=== PATIENT | male | born 1950 | race Caucasian/White ===

== ENCOUNTER 2019-06-30 11:30 | Inpatient (IN) ==
[2019-06-30] MEDS ORDERED: DUONEB (A & A) INH ONE (11:59)
[2019-06-30] MEDS ORDERED: SOLU-MEDROL IV ONE (12:00)
--- NOTE | 2019-06-30 12:29 | Diag Imaging Result Doc PS360 ---
CHEST-2 VIEWS - 06/30/2019 INDICATION: dyspnea COMPARISON: 01/28/2019 FINDINGS: Stable hyperexpanded lungs compatible with COPD. No infiltrates or edema. Heart size is normal. No pneumothorax or pleural effusion. IMPRESSION: COPD. Electronically signed by Sean Shankar 06/30/2019 12:27 PM
[2019-06-30 12:47] LABS: BASO# 0.06 X1000 (0.0-0.2); BASO% 0.5 % (0.0-0.8); EOS# 0.11 X1000 (0.0-0.7); HEMATOCRIT 44.5 % (42.0-52.0); HEMOGLOBIN 13.4 g/dL (14.0-18.0); LYMPH# 1.41 X1000 (1.2-3.4); LYMPH% 12.6 % (20.5-51.1); MCH 27.8 PG (27-31); MCHC 30.1 g/dL (33-37); MCV 92.3 FL (81-99); MONO# 0.97 X1000 (0.11-0.59); MONO% 8.7 % (1.7-9.3); MPV 10.8 FL (7.4-10.4); NEUT# 8.62 X1000 (1.4-6.5); NEUT% 77.2 % (42.2-75.2); PLT 294 X1000 (130-400); RBC 4.82 XMIL (4.7-6.1); RDW 13.4 % (11.5-14.5); WBC 11.17 X1000 (4.8-10.8)
[2019-06-30 13:13] LABS: AGAP 11; ALB/GLOB RATIO 1.5; ALBUMIN 4.1 g/dL (3.5-5.0); ALKALINE PHOSPHATASE 50 U/L (32-122); BUN 19 mg/dL (8-22); CALCIUM 9.5 mg/dL (8.8-10.2); CHLORIDE 95 mmol/L (98-107); COSMO 283; CREATININE 0.8 mg/dL (0.7-1.2); ESTIMATED GFR > 60; GLUCOSE 95 mg/dL (70-104); GOT 17 U/L (10-34); GPT 14 U/L (10-44); POTASSIUM 4.4 mmol/L (3.5-5.1); SODIUM 141 mmol/L (136-145); TCO2 35 mmol/L (25-35); TOTAL BILIRUBIN 0.16 mg/dL (0.20-1.00); TOTAL PROTEIN 6.8 g/dL (6.3-8.3)
--- NOTE | 2019-06-30 13:50 | PROVIDER DOCUMENTATION ---
This chart was entered by Judith Anaya Scribe, acting as scribe for Ken Gannon MD. HPI-Respiratory General - General Chief Complaint: Shortness of Breath Stated Complaint: SOB Time Seen by Provider: 06/30/19 11:55 Source: patient Allergies/Adverse Reactions: Patient Allergies Allergy/AdvReac Type Severity Reaction Status Date / Time No Known Allergies Allergy Verified 06/30/19 12:40 Home Medications: Home Medication List Medication Instructions Recorded Confirmed Last Taken Type Albuterol 2.5MG/Ipratrop 0.5MG 3 ml INH Q2H PRN PRN 06/30/19 06/30/19 06/30/19 History [Duoneb] Amlodipine Besylate [Norvasc] 5 mg PO QAM 06/30/19 06/30/19 06/30/19 History Clopidogrel Bisulfate [Plavix] 75 mg PO QAM 06/30/19 06/30/19 06/30/19 History Ezetimibe [Zetia] 10 mg PO QHS 06/30/19 06/30/19 1 Day Ago History ~06/29/19 Fluticasone/Vilanterol [Breo 1 ea INHALATION QAM 06/30/19 06/30/19 06/30/19 History Ellipta Inhaler] Omeprazole [Prilosec] 20 mg PO DAILY@0700 06/30/19 06/30/19 06/30/19 History Rosuvastatin Calcium [Crestor] 10 mg PO QHS 06/30/19 06/30/19 1 Day Ago History ~06/29/19 Umeclidinium [place] Inhaler 1 puff INH DAILY 06/30/19 06/30/19 06/30/19 History [Incruse Ellipta] - History of Present Illness-Resp Nature of Presenting Problem: Patient is a 69 year old male who presents to the ED via EMS with shortness of breath. States lightheadedness with shortness of breath today. History of COPD. Reports being seen at his PCP's office and received 2 neb treatments. Quality of Pain: reports: none Severity in ED: reports: mild Onset/Duration: reports: gradual Timing: reports: still present, getting worse Modifying Factors: worse with: exertion Associated Symptoms: reports: lightheadedness, shortness of breath Similar Symptoms Previously?: Yes Recently seen or treated by another doctor?: Yes Review of Systems - Adult - REVIEW OF SYSTEMS - ADULT Constitutional: reports: no symptoms reported Eyes: reports: no symptoms reported Ears, Nose, Mouth & Throat: reports: no symptoms reported Cardiovascular: reports: no symptoms reported Respiratory: reports: see HPI, shortness of breath Gastrointestinal: reports: no symptoms reported Genitourinary: reports: no symptoms reported Musculoskeletal: reports: no symptoms reported Integumentary: reports: no symptoms reported Neurological: reports: see HPI, other (lightheadedness) Psychiatric: reports: no symptoms reported Endocrine: reports: no symptoms reported Hematologic/Lymphatic: reports: no symptoms reported Allergic/Immunologic: reports: no symptoms reported All Other Systems: Reviewed and Negative Past History - Adult - PAST MEDICAL HISTORY-ADULT Review of Records: reports: Old Records Reviewed, Nursing Assessment Review, Medications Reviewed, Social history reviewed & non-contributory. Major Childhood Illnesses: reports: denies history Cardiovascular: reports: denies history Respiratory: reports: COPD Gastrointestinal: reports: denies history Obstetrical/Gynecological: reports: denies history Genitourinary: reports: denies history Musculoskeletal: reports: denies history Neurological: reports: denies history Endocrine/Immune: reports: denies history Other Conditions: reports: denies history - PRIOR SURGERIES/PROCEDURES Surgical/Procedure History: reports: reviewed, not pertinent - IMMUNIZATION STATUS Childhood Immunizations: See Nurse Assessment Flu Vaccine: See Nurse Assessment - FAMILY HISTORY Family History: reviewed, not pertinent - SOCIAL HISTORY Smoking: cigarettes, greater than 1 pack/day Provider spent 3-5 mins advising pt. on dangers of tobacco.: Discussed manners to quit use, and f/u contacts for add'l counseling. Substance Use: denies Living Situation: family Physical Exam-General - PHYSICAL EXAM-ADULT Initial Vital Signs Reviewed: Yes - CONSTITUTIONAL General Appearance: alert, mild distress - RESPIRATORY Respiratory: chest non-tender, respiratory distress (mild), decreased breath sounds, wheezing (bilateral) - CARDIOVASCULAR Cardiovascular: regular rate, rhythm, no gallop, no murmur - SKIN Integumentary: normal color, normal turgor, warm/dry - NEUROLOGIC Neurologic: grossly normal - PSYCHIATRIC Psych/Mental Status: normal mood/affect, normal thought content, normal thought process, oriented x 3 Progress - PLAN OF CARE/RESULTS Progress/Plan/Lab Results: Vital Signs - 8 hr 06/30/19 11:50 06/30/19 12:28 06/30/19 13:12 Pulse Rate 98 H 97 H 96 H Respiratory Rate 18 19 20 Blood Pressure 128/68 134/84 O2 Sat by Pulse Oximetry 96 95 06/30/19 12:40 Influenza Screen - Final Nasopharyngeal Laboratory Results - last 24 hr 06/30/19 06/30/19 06/30/19 12:20 12:20 12:20 WBC 11.17 H RBC 4.82 Hgb 13.4 L Hct 44.5 MCV 92.3 MCH 27.8 MCHC 30.1 L RDW Std Deviation 13.4 Plt Count 294 MPV 10.8 H Immature Gran % (Auto) 0.0 Neut % (Auto) 77.2 H Lymph % (Auto) 12.6 L Blount % (Auto) 8.7 Eos % (Auto) 1.0 Baso % (Auto) 0.5 Immature Gran # (Auto) 0.00 Neut # (Auto) 8.62 H Lymph # (Auto) 1.41 Blount # (Auto) 0.97 H Eos # (Auto) 0.11 Baso # (Auto) 0.06 Sodium 141 Potassium 4.4 Chloride 95 L Carbon Dioxide 35 Anion Gap 11 BUN 19 Creatinine 0.8 Estimated GFR/1.73 m2 > 60 BUN/Creatinine Ratio 24 Glucose 95 Calculated Osmolality 283 Calcium 9.5 Total Bilirubin 0.16 L AST 17 ALT 14 Alkaline Phosphatase 50 Troponin T High Sens Lgs-Y-Kunqfxurkwq Pept Total Protein 6.8 Albumin 4.1 Globulin 2.7 Albumin/Globulin Ratio 1.5 Plasma Lactate 1.5 06/30/19 06/30/19 12:20 12:20 WBC RBC Hgb Hct MCV MCH MCHC RDW Std Deviation Plt Count MPV Immature Gran % (Auto) Neut % (Auto) Lymph % (Auto) [place] % (Auto) Eos % (Auto) Baso % (Auto) Immature Gran # (Auto) Neut # (Auto) Lymph # (Auto) Blount # (Auto) Eos # (Auto) Baso # (Auto) Sodium Potassium Chloride Carbon Dioxide Anion Gap BUN Creatinine Estimated GFR/1.73 m2 BUN/Creatinine Ratio Glucose Calculated Osmolality Calcium Total Bilirubin AST ALT Alkaline Phosphatase Troponin T High Sens 25 H Qjd-G-Nlttzftfoyv Pept 1039 H Total Protein Albumin Globulin Albumin/Globulin Ratio Plasma Lactate Orders Category Date Time Status Admit - [facility] Routine AdmDCTranf 06/30/19 13:47 Active Nursing- Obtain EKG once Care 06/30/19 11:59 Active CHEST-2 VIEWS [RAD] Stat Exams 06/30/19 11:59 Completed BLOOD CULTURE [BLDCUL] Stat Lab 06/30/19 12:27 Results CBC WITH ELECTRONIC DIFF [HEME] Stat Lab 06/30/19 12:20 Completed COMPREHENSIVE METABOLIC PANEL [CHEM] Stat Lab 06/30/19 12:20 Completed INFLUENZA SCREEN A/B Stat Lab 06/30/19 12:40 Completed LACTATE, PLASMA [CHEM] Stat Lab 06/30/19 12:20 Completed PRO B-NATRIURETIC PEPTIDE Stat Lab 06/30/19 12:20 Completed TROPONIN T HIGH SENSITIVITY Stat Lab 06/30/19 12:20 Completed Albuterol 2.5MG/Ipratrop 0.5MG [Duoneb (A & A)] Med 06/30/19 11:59 Discontinued 9 ml INH NOW ONE Methylprednisolone Sod Succ [Solu-Medrol] Med 06/30/19 12:00 Discontinued 125 mg IV NOW ONE Aerosol Treatments Routine Oth 06/30/19 11:59 Completed Aerosol Treatments Stat Oth 06/30/19 11:59 Completed Transfer/Admit Order [TRANSFER] Routine Transfer 06/30/19 13:47 Ordered Result Diagrams: 06/30/19 12:20 06/30/19 12:20 - REASSESSMENT Reassessment #1 Time Reassessed: 13:42 Status: unchanged (patient states he is still having shortness of breath.) - EKG 1 Time of EKG reading by physician:: 13:06 EKG Read and Signed by:: Ken Gannon EKG Interpretation (*Must complete 3 of following elements*): Abnormal (cannot rule out inferior infarct, age undetermined; anterior infarct, age undetermined) Rate: 98 Rhythm: sinus rhythm with frequent premature ventricular complexes [place]: normal [place] Interval: normal Comments: possible left atrial enlargement; - XRAY 1 XRAY Study: Chest Impression: See EMR Report ( CHEST-2 VIEWS - 06/30/2019 INDICATION: dyspnea COMPARISON: 01/28/2019 FINDINGS: Stable hyperexpanded lungs compatible with COPD. No infiltrates or edema. Heart size is normal. No pneumothorax or pleural effusion. IMPRESSION: COPD. Electronically signed by Sean Shankar 06/30/2019 12:27 PM 06/30/19 1227 Interpreting Physician: Sean Shankar MD Dictated Date/Time: 06/30/19 1226 cc: Ken Gannon MD; Bhupendra Bruce MD) - CONSULTS/PCP/HOSPITALIST Notification #1 *Consult/PCP/Hospitalist*: Dr. Bruce paged [phone] Time Discussed: 13:46 Reason/Comments: Dr. Gannon consulted with Dr. Bruce about patient. Consult Disposition: Will see in ED, Admit Departure - Departure Date of Disposition Decision: 06/30/19 Time of Disposition Decision: 13:46 DIAGNOSIS: COPD (chronic obstructive pulmonary disease) Qualifiers: COPD type: unspecified COPD Qualified Code(s): J44.9 - Chronic obstructive pulmonary disease, unspecified Disposition: ADMITTED INPATIENT 09 Certified Medical Emergency: Emergent Condition: Serious Referrals and Follow-Ups: Bhupendra Bruce MD [Primary Care Provider] - Discharge Education: Steps to Quit Smoking, Anrs-tq-Cigl - Critical Care Note This patient required my direct & personal management of CC.: Yes Total Time (mins): 38 Critical Care Statement: This patient required my direct personal management to treat or rule out processes, the absence of which, could potentiallly result in sudden, clinically significant life or limb threatening deterioration. Attestation - Physician/ RORY Attestation The physician spent face to face time with patient:: Yes Advanced Practice Provider documentation review:: Supervising physician onsite and consulted in the evaluation and care of this patient. The physician did have a face to face encounter with the patient. This chart was documented by the indicated scribe, (Judith Anaya Scribe) and accurately reflects the services I performed and decisions made by me, Ken Gannon MD, as attested by the provider's signature.
--- NOTE | 2019-06-30 16:03 | EKG Report ---
Test Performed on : 06/30/2019 1:06:50 PM Test Reason : SOB Blood Pressure : / mmHG Vent. Rate : 098 BPM Atrial Rate : 098 BPM P-R Int : 140 ms QRS Dur : 082 ms QT Int : 340 ms P-R-T Axes : 067 071 076 degrees QTc Int : 434 ms Sinus rhythm. with frequent premature ventricular complexes. Possible Left atrial enlargement Cannot rule out Inferior infarct , age undetermined Anterior infarct , age undetermined Abnormal ECG No previous ECGs available Unconfirmed Result
[2019-06-30] MEDS: PROTONIX IV SCH (17:29)
[2019-06-30] MEDS: SODIUM CHLORIDE 0.9% INJ SCH (17:29)
[2019-06-30] MEDS: NICODERM PATCH TD SCH (17:29)
[2019-06-30] MEDS ORDERED: LEVAQUIN 250 MG/D5W 250 MG/50 ML IVPB IV SCH (17:30)
[2019-06-30] MEDS: LOVENOX SUBQ SCH (17:37)
[2019-06-30] MEDS ORDERED: PREVNAR 13 IM ONE (17:42)
[2019-06-30] MEDS: POTASSIUM CHLORIDE 10 MEQ in NS 1,000 ML IV SCH (18:30)
[2019-06-30] MEDS: DUONEB (A & A) INH PRN (19:10)
--- NOTE | 2019-06-30 21:37 | HISTORY AND PHYSICAL ---
CHIEF COMPLAINT: Shortness of breath. HISTORY OF PRESENT ILLNESS: Mr. Ochoa is a 69-year-old, white gentleman, known case of advanced COPD. The patient is on home oxygen and nebulizer treatment, not doing well the last many days. The patient had increasing cough, chest congestion, expectoration, shortness of breath, decreased exercise tolerance. The patient was getting short of breath with minimal exertion, cough productive of scanty sputum. I evaluated the patient about a week ago in my office. At that time, patient had urinary frequency, urgency, dysuria. I treated the patient with antibiotics. The patient also had shortness of breath, and I gave him steroid, prednisone in tapering dose. The patient did fairly well. The patient started having increasing cough, chest congestion, decreased exercise tolerance. The patient came to the office for evaluation. The patient was using his nebulizer treatment, home oxygen without significant relief. The patient denied any hemoptysis. No pleuritic-type of chest pain. Denied any sore throat. The patient did have some chills, low-grade fever. The patient was getting short of breath walking a short distance. When the patient came to the office, the patient was in moderate respiratory distress. He was gasping for air. The last time I offered the patient hospitalization, but patient declined. Patient denied any nausea or vomiting. The patient had dull headache, mild epigastric pain, some nausea, but no vomiting. The patient's dysuria improved. The patient does have urinary frequency, urgency. No diarrhea, blood or mucus in the stool. When I evaluated the patient in the office, the patient was very tachypneic and tachycardic, offered patient going to hospital for evaluation. This time, patient did not decline considering his clinical condition. I had to call EMS and they carried the patient to the emergency room. The patient received 3 breathing treatments in the ER. The patient was still short of breath and the ER physician decided to admit the patient for further care. The patient's blood pressure in the ER, 134/84, pulse 96, respirations 20, and temperature was 98.2 degrees. The patient did have movement of accessory muscles of respiration and initially he did have difficulty finishing sentences. ALLERGIES: No known drug allergy. MEDICATIONS: Patient is on Zetia, bronchodilator treatment, Prilosec, Norvasc, Plavix, Breo, Incruse. PAST MEDICAL HISTORY: COPD, gastritis and reflux disease, hyperlipidemia, peripheral vascular disease, coronary artery disease, hypertension, gastroesophageal reflux disease, recurrent bronchitis, pneumonia, history of urolithiasis. The patient had several vascular surgeries, left lower leg amputation and blood clot. SOCIAL HISTORY: . The patient does smoke instead of multiple times requesting to quit smoking. Denied alcohol or substance abuse. FAMILY HISTORY: Significant for mother of cancer, details of which are not available. Father of motor vehicle accident. The patient's sister of heart attack. The patient has a strong family history of coronary artery disease. REVIEW OF SYSTEMS: As per HPI. Otherwise unobtainable. PERSONAL HISTORY: , lives with the . The patient does smoke. Denied alcohol or substance abuse. PHYSICAL EXAMINATION: GENERAL: Elderly white gentleman in moderate distress. VITAL SIGNS: Blood pressure 144/76, pulse 96, respiration 18, temperature 98.2 degrees. SKIN: Senile turgor. HEENT: Head atraumatic, normocephalic. [place] conjunctivae, anicteric sclerae. Extraocular muscle movement normal. Fundus cannot be penetrated. Good oral hygiene. No tonsillopharyngeal congestion or exudate. Ears and nose benign. NECK: Supple. No JVD, thyromegaly, or lymphadenopathy. CHEST: Bilateral expiratory wheezing. A few basilar crepitations. Movement of accessory muscles of respiration present. CARDIOVASCULAR: S1 and S2. Tachycardia. No gallop or thrill. ABDOMEN: Soft, globular. Bowel sounds present. No organomegaly or mass. EXTREMITIES: No cyanosis, clubbing. No acute DVT. The patient does have left leg amputated at the knee level. CENTRAL NERVOUS SYSTEM: Alert, awake, answering questions fairly well. MUSCULOSKELETAL SYSTEM: No evidence of acute synovitis. CONSIDERATIONS: 1. Patient admitted with acute respiratory distress, exacerbation of chronic obstructive pulmonary disease. Chest x-ray did not reveal any pneumonia. 2. His other problems include gastritis and reflux disease, hyperlipidemia, history of left leg amputation, history suggestive of peripheral vascular disease. PLAN: Overall plan discussed at length with the patient. Plan is to admit the patient, IV hydration, pulmonary toilet, IV prednisone, and bronchodilator treatment. Overall plan discussed with the patient and he is in agreement. ADMISSION LABORATORY: Revealed WBC count 11.17, hemoglobin 13.4, hematocrit 34.5, platelet count 294,000. Electrolytes were fairly benign. Troponin was 25. ProBNP 1039. PROGNOSIS: Overall prognosis fair to guarded. I had a lengthy discussion with the patient about smoking cessation. The patient understood and agreed. cc: Bhupendra Bruce MD MTDD
[2019-06-30] MEDS: ROCEPHIN 1 GM in NS 50 ML IV SCH (22:57)
[2019-06-30] MEDS: SOLU-MEDROL IV SCH (22:59)
[2019-06-30] MEDS: CRESTOR PO SCH (22:59)
[2019-06-30] MEDS: ZETIA PO SCH (23:00)
[2019-07-01] MEDS: LEVAQUIN 500 MG/D5W 500 MG/100 ML IVPB IV SCH ×2 (00:46→23:05)
[2019-07-01] MEDS: DUONEB (A & A) INH PRN ×7 (03:21→22:59)
[2019-07-01 03:38] LABS: ALLEN TEST YES; BE 8.7 mmoll (-3.0-3.0); BLOOD TYPE ARTERIAL; HCO3-(ACT) 31.6 mmoll (20.0-26.0); METHB 0.6 % (0.0-1.5); O2(CT) 16.3 mL/dL (15.0-23.0); O2HB 94.4 % (95.0-99.0); PO2(98.6) 77 mmHg (60-100); SAMPLE BLOOD; SAO2 96.7 % (95.0-100.0); THB 12.2 g/dL (11.5-17.4)
[2019-07-01 03:41] LABS: MODALITY CANNULA
[2019-07-01 03:42] LABS: PCO2(98.6) 57 mmHg (35-45)
[2019-07-01] MEDS: SOLU-MEDROL IV SCH ×3 (03:50→20:24)
[2019-07-01] MEDS ORDERED: VANCOMYCIN IV PER PHARMACY MISC SCH (07:00)
[2019-07-01] MEDS ORDERED: INCRUSE ELLIPTA INH SCH (07:30)
[2019-07-01] MEDS ORDERED: BREO ELLIPTA 100/25 MCG INH INH SCH (07:30)
[2019-07-01 07:38] LABS: HEMATOCRIT 39.1 % (42.0-52.0); MCH 28.4 PG (27-31); MCHC 30.7 g/dL (33-37); MCV 92.7 FL (81-99); MPV 11.2 FL (7.4-10.4); RBC 4.22 XMIL (4.7-6.1); RDW 13.6 % (11.5-14.5); WBC 7.77 X1000 (4.8-10.8)
--- NOTE | 2019-07-01 08:05 | PROGRESS NOTE ---
DATE: 07/01/2019 Mr. Ochoa is doing better. The patient still has cough and chest congestion. Denied any nausea or vomiting. Oral intake is fair. Does get short of breath easily. Denied any dysuria or hematuria. No typical chest pain. Patient admitted with COPD exacerbation, acute on chronic respiratory failure. The patient claims he was not able to sleep well. OBJECTIVE: Vital Signs: His vital signs reviewed. Neck: Supple. No JVD. Lungs: Bilateral good air entry present. Bilateral occasional wheezing. CVS: S1 and S2 heard. Abdomen: Soft, globular. Bowel sounds present. Extremities: No cyanosis, clubbing. Patient does have left below-knee amputation. LABOR RELATIONS ANALYST: Alert, awake. Answering questions fairly well. LABORATORY STUDIES: Blood gas done this morning, pH 7.4, pCO2 57, PO2 77. CONSIDERATION: Acute exacerbation of COPD, chronic respiratory failure. Chest x-ray did not reveal any pneumonia. The patient does have history of gastritis, hyperlipidemia, hypertension. PLAN: We will check appropriate labs. Continue current treatment. I am going to give him Klonopin to help him rest. Continue rest of the treatment. Close observation. Overall plan discussed at length with the patient and and they are in agreement. cc: Bhupendra Bruce MD
[2019-07-01 08:22] LABS: AGAP 9; ALB/GLOB RATIO 1.2; ALBUMIN 3.6 g/dL (3.5-5.0); ALKALINE PHOSPHATASE 42 U/L (32-122); BUN 22 mg/dL (8-22); CALCIUM 9.2 mg/dL (8.8-10.2); CHLORIDE 98 mmol/L (98-107); COSMO 283; CREATININE 0.8 mg/dL (0.7-1.2); ESTIMATED GFR > 60; GLUCOSE 141 mg/dL (70-104); GOT 13 U/L (10-34); GPT 11 U/L (10-44); POTASSIUM 4.4 mmol/L (3.5-5.1); SODIUM 139 mmol/L (136-145); TCO2 32 mmol/L (25-35); TOTAL BILIRUBIN 0.19 mg/dL (0.20-1.00); TOTAL PROTEIN 6.5 g/dL (6.3-8.3)
[2019-07-01] MEDS: BREO ELLIPTA 100/25 MCG INH INH SCH ×2 (08:38→10:59)
[2019-07-01] MEDS ORDERED: VANCOMYCIN 2,000 MG in NS 500 ML IV ONE (09:00)
[2019-07-01] MEDS: NORVASC PO SCH (09:50)
[2019-07-01] MEDS: NICODERM PATCH TD SCH (09:50)
[2019-07-01] MEDS: PLAVIX PO SCH (09:50)
[2019-07-01] MEDS: POTASSIUM CHLORIDE 10 MEQ in NS 1,000 ML IV SCH (13:08)
[2019-07-01] MEDS: INCRUSE ELLIPTA INH SCH ×2 (15:51→16:08)
[2019-07-01] MEDS: LOVENOX SUBQ SCH (16:48)
[2019-07-01] MEDS: PROTONIX IV SCH (16:48)
[2019-07-01] MEDS: SODIUM CHLORIDE 0.9% INJ SCH (16:52)
[2019-07-01] MEDS: ROCEPHIN 1 GM in NS 50 ML IV SCH (20:22)
[2019-07-01] MEDS: KLONOPIN PO SCH (20:25)
[2019-07-01] MEDS: ZETIA PO SCH (20:25)
[2019-07-01] MEDS: CRESTOR PO SCH (20:25)
[2019-07-02] MEDS: DUONEB (A & A) INH PRN ×6 (03:25→19:42)
[2019-07-02] MEDS: SOLU-MEDROL IV SCH ×3 (03:53→20:40)
[2019-07-02] MEDS: POTASSIUM CHLORIDE 10 MEQ in NS 1,000 ML IV SCH ×2 (05:25→18:21)
[2019-07-02] MEDS ORDERED: LASIX IV ONE (06:58)
[2019-07-02] MEDS: BREO ELLIPTA 100/25 MCG INH INH SCH (07:38)
[2019-07-02] MEDS ORDERED: VANCOMYCIN 1,850 MG in NS 500 ML IV SCH (09:00)
--- NOTE | 2019-07-02 09:01 | PROGRESS NOTE ---
DATE: 07/02/2019 SUBJECTIVELY: Mr. Ochoa is doing fair. The patient still has significant cough with expectoration. No high-grade fever or chills. The patient does get short of breath with exertion. No nausea or vomiting. Oral intake is fair. One of the blood cultures was positive for gram-positive cocci. I already started him on vancomycin yesterday. The patient denied any typical chest pain. OBJECTIVE: Vital Signs: His vital signs noted. Neck: Supple. No JVD. Lungs: Bibasilar crepitation. Occasional wheezing. No movement of accessory muscle of respiration. Cardiovascular System: S1 and S2 heard. Abdomen: Soft, globular. Bowel sounds present. Central Nervous System: Alert, awake, able to move all 4 limbs. CONSIDERATION/PLAN: The patient's problems include: 1. Chronic obstructive pulmonary disease exacerbation. 2. Possible sepsis. 3. Hyperlipidemia. 4. Hypertension. I am going to continue current treatment. Decrease his steroid. Giving him IV Lasix. The overall plan discussed with the patient, and he is in agreement. OTHER PROBLEMS: His other problems include: 1. Peripheral arterial disease. 2. Chronic respiratory failure. cc: Bhupendra Bruce MD
[2019-07-02] MEDS: NICODERM PATCH TD SCH (09:40)
[2019-07-02] MEDS: NORVASC PO SCH (09:40)
[2019-07-02] MEDS: VANCOMYCIN 1,500 MG in NS 250 ML IV SCH (09:40)
[2019-07-02] MEDS: PLAVIX PO SCH (09:41)
[2019-07-02] MEDS: LOVENOX SUBQ SCH (17:45)
[2019-07-02] MEDS: PROTONIX IV SCH (17:45)
[2019-07-02] MEDS: SODIUM CHLORIDE 0.9% INJ SCH (17:45)
[2019-07-02] MEDS: KLONOPIN PO SCH (20:40)
[2019-07-02] MEDS: CRESTOR PO SCH (20:40)
[2019-07-02] MEDS: ZETIA PO SCH (20:40)
[2019-07-02] MEDS: ROCEPHIN 1 GM in NS 50 ML IV SCH (20:42)
[2019-07-03] MEDS: DUONEB (A & A) INH PRN ×4 (00:10→14:53)
[2019-07-03] MEDS: SOLU-MEDROL IV SCH (03:12)
[2019-07-03] MEDS: LEVAQUIN 500 MG/D5W 500 MG/100 ML IVPB IV SCH (03:13)
[2019-07-03] MEDS: BREO ELLIPTA 100/25 MCG INH INH SCH (07:14)
[2019-07-03] MEDS ORDERED: DUONEB (A & A) ONE (07:18)
--- NOTE | 2019-07-03 07:51 | Diag Imaging Result Doc PS360 ---
EXAM: CHEST-PORTABLE HISTORY: sob TECHNIQUE: Two views COMPARISON: 06/30/2019 FINDINGS: The lungs are hyperexpanded. The heart is not enlarged. There are mild increased interstitial markings. No effusion identified. IMPRESSION: Mild fibrosis or pulmonary edema Electronically signed by Osiel Portillo 07/03/2019 7:48 AM
[2019-07-03] MEDS ORDERED: PREDNISONE PO SCH (09:00)
[2019-07-03 09:25] LABS: BASO# 0.02 X1000 (0.0-0.2); BASO% 0.1 % (0.0-0.8); HEMATOCRIT 41.4 % (42.0-52.0); HEMOGLOBIN 12.4 g/dL (14.0-18.0); IMM GRAN# 0.04 X1000 (0.0-0.04); IMM GRAN% 0.3 % (0.0-0.5); LYMPH# 0.43 X1000 (1.2-3.4); LYMPH% 2.7 % (20.5-51.1); MCH 27.7 PG (27-31); MCV 92.4 FL (81-99); MONO# 0.35 X1000 (0.11-0.59); MONO% 2.2 % (1.7-9.3); MPV 11.1 FL (7.4-10.4); NEUT# 14.99 X1000 (1.4-6.5); NEUT% 94.7 % (42.2-75.2); PLT 238 X1000 (130-400); RBC 4.48 XMIL (4.7-6.1); WBC 15.83 X1000 (4.8-10.8)
[2019-07-03 09:45] LABS: AGAP 10; ALB/GLOB RATIO 1.4; ALBUMIN 3.6 g/dL (3.5-5.0); ALKALINE PHOSPHATASE 38 U/L (32-122); BUN 22 mg/dL (8-22); CALCIUM 9.3 mg/dL (8.8-10.2); CHLORIDE 100 mmol/L (98-107); COSMO 287; CREATININE 0.8 mg/dL (0.7-1.2); ESTIMATED GFR > 60; GLUCOSE 180 mg/dL (70-104); GOT 43 U/L (10-34); GPT 54 U/L (10-44); SODIUM 140 mmol/L (136-145); TCO2 30 mmol/L (25-35); TOTAL BILIRUBIN 0.17 mg/dL (0.20-1.00); TOTAL PROTEIN 6.2 g/dL (6.3-8.3)
[2019-07-03] MEDS: VANCOMYCIN 1,500 MG in NS 250 ML IV SCH (09:52)
[2019-07-03] MEDS: NORVASC PO SCH (09:53)
[2019-07-03] MEDS: NICODERM PATCH TD SCH (09:53)
[2019-07-03] MEDS: PLAVIX PO SCH (09:53)
[2019-07-03 10:45] LABS: BANDS 1 % (0-1); LARGE PLATELETS OCCASIONAL; LYMPHS 1 % (21-51); MONO 3 % (1-9); SEGS 95 % (42-75)
[2019-07-03 12:25] VITALS: BP 157/68
--- NOTE | 2019-07-04 13:52 | DISCHARGE SUMMARY ---
ADMISSION DATE: 06/30/2019 DISCHARGE DATE: 07/03/2019 FINAL DISCHARGE DIAGNOSES: 1. Acute exacerbation of COPD. 2. Chronic respiratory failure. 3. Sepsis. 4. Gastritis and reflux disease. 5. Hyperlipidemia. 6. Peripheral vascular disease. 7. Left below-knee amputation. 8. Peripheral arterial disease. 9. Hypertension. 10. Hyperlipidemia. Mr. Ochoa is a 69-year-old white gentleman, known case of advanced COPD, chronic respiratory failure came to the office in respiratory distress. The patient was treated as an outpatient. Not responding adequately and the patient had to call ambulance to bring patient to the hospital. Evaluated in the ER, admitted for further care. The patient was treated with IV antibiotics, IV steroid, pulmonary toilet, bronchodilator treatment. His clinical condition gradually improved and stabilized. The patient's shortness of breath improved. He denied any fever or chills. Chest congestion and cough improved. The patient still has at times coughing spells but much less. His oral intake was better. The patient was eager to go home and I am planning to discharge him home. One of the blood cultures was growing gram-positive cocci. I think it is contamination. I am going to discharge patient home on doxycycline. The patient claims it is very important for him to go home as his is having eye surgery and he needs to put eyedrops. I evaluated the patient in the evening and repeated blood work. The patient had leukocytosis but most likely due to steroid. Overall patient received maximum benefit of hospitalization and I am planning to discharge him home. VITAL SIGNS: Temperature 97.6 degrees, pulse 95, respirations 20, blood pressure 157/68, O2 saturation on nasal cannula 99%. Lungs: Bibasilar crepitations, occasional wheezing. CVS: S1 and S2 heard. Abdomen: Soft, globular. Bowel sounds present. PICKING SUPERVISOR: Alert, awake, able to move all 4 limbs. Patient does have left below-knee amputation. LABORATORY DATA: Noted. WBC count 15.83, hemoglobin 12.4, hematocrit 41.4, platelet count 238,000. Patient does have a left shift, most likely due to steroid effect. Blood gas pH 7.4, pCO2 57, PO2 77. Electrolytes were fairly benign. Blood glucose 180, again due to steroid effect. Chest x-ray results reviewed. Overall patient received maximum benefit of hospitalization and I am going to discharge patient home. Encouraged him to quit smoking. Bronchodilator treatment. Doxycycline. Tapering dose of steroid. Continue home medicine. In case of more distress, call us back or go to emergency room. cc: Bhupendra Bruce MD
== END 2019-07-03 16:59 | disposition home or self-care (01) | DRG 191 ==
LOC: SUPCPDRO → ED 11:30 → EDIPHOLD 14:14 → 3N 16:41
PROVIDERS: ADMIT Internal Medicine; ATTEND Internal Medicine